=== PATIENT | male | born 1990 | race Caucasian/White ===

== ENCOUNTER 2016-05-18 11:01 | Emergency (ER) | payer MEDICAID, SELFPAY ==
[2016-05-18] MEDS ORDERED: METHOCARBAMOL 1,000 MG/10 ML VIAL (J2800) As Ordered ONE (12:17)
[2016-05-18] MEDS ORDERED: KETOROLAC 30 MG/ML VIAL (J1885) As Ordered ONE (12:17)
--- NOTE | 2016-05-18 13:05 | REP ---
CT LUMBAR SPINE WITHOUT CONTRAST: HISTORY: Back pain. There is no disc bulge or herniation at the L1-2 through L3-4 levels. The nerves exit the neural foramina without compression. A diffuse disc bulge is present at the L4-5 level. There is minimal compression of the thecal sac. The L4 nerves exit the neural foramina without compression. A diffuse disc bulge with associated osteophyte formation is present at the L5-S1 level. This abuts the thecal sac and S1 nerves. The L5 nerves exit the neural foramina without compression. The L4-5 intervertebral disc is decreased in height consistent with disc degeneration. There is no subluxation. IMPRESSION: 1. Diffuse disc bulge at the L4-5 level with minimal thecal sac compression. 2. Diffuse disc bulge with associated osteophyte formation at the L5-S1 level. This abuts the thecal sac and S1 nerves. Signed by Ganesh Hastings MD 05/18/2016 01:12 P
--- NOTE | 2016-05-18 13:17 | EDDOCDS ---
Physician Documentation [facility] Name: Hever Howard Age: 26 yrs Sex: Male : 1990 Arrival Date: 05/18/2016 Time: 11:01 Bed PD Private MD: Disposition: 05/18/16 13:11 Discharged to Home/Self Care. Impression: Low back pain. - Condition is Stable. - Discharge Instructions: Back Pain, Adult, Pjnq-sl-Ewci. - Prescriptions for Diclofenac Sodium 75 mg Oral Tablet, Delayed Release (E.C.) - take 1 tablet by ORAL route 2 times per day; 30 tablet. Robaxin- 750 750 mg Oral Tablet - take 1 tablet by ORAL route every 6 hours As needed; 40 tablet. - Medication Reconciliation, Local Pharmacy Hours form. - Follow up: Orthopaedics, [facility]; When: Call to arrange an appointment; Reason: Further diagnostic work-up, Recheck today's complaints, Continuance of care. - Problem is an acute exacerbation. - Symptoms have improved. Historical: - Allergies: Bactroban (Hives); Neosporin (xph-rvr-fsmri) (Hives); - Home Meds: 1. none - PMHx: Asthma; - PSHx: none; - Social history: Smoking status: Patient uses tobacco products, current every day smoker. Patient/guardian denies using alcohol, street drugs, No barriers to communication noted, The patient speaks fluent Swiss, Speaks appropriately for age. - Family history: Not pertinent. - : The pt / caregiver states he / she is not on anticoagulants. Home medication list is obtained from the patient. - Exposure Risk Screening:: None identified. Vital Signs: 05/18 11:06 BP 164 / 84; Pulse 88; Resp 17; Temp 96.8(T); Pulse Ox 97% on R/A; Weight 117.93 kg / lr2 259.99 lbs (R); Height 6 ft. 2 in. (187.96 cm) (R); Pain 7/10; 13:15 BP 126 / 73 RA Sitting (auto/lg); Pulse 69; Resp 16; Temp 96.9; Pulse Ox 96% on R/A; rs6 Pain 3/10; 13:16 Pain 3/10; js13 13:16 Pain 3/10; js13 11:06 Body Mass Index 33.38 (117.93 kg, 187.96 cm) lr2 MDM: 11:43 Financial registration complete. lg 11:50 [facility] Payment Agreement was scanned into [employer] and attached to record. lg 12:10 ketorolac 30 mg IM once ordered. btw 12:10 Robaxin 250 mg IM once ordered. btw 12:11 CT Spine, Lumbar W/o Contrast Ordered. EDMS Administered Medications: 12:21 Drug: ketorolac 30 mg [ketorolac 30 mg/mL (1 mL) injection solution (1 mL)] Route: IM; js13 Site: left deltoid; 13:16 Follow up: Pain 3/10 Adult; Response: Confirmed pt not driving.; Pain is decreased js13 12:21 Drug: Robaxin 250 mg [Robaxin 100 mg/mL injection solution (2.5 mL)] Route: IM; Site: js13 right deltoid; 13:16 Follow up: Pain 3/10 Adult; Response: Confirmed pt not driving.; Pain is decreased js13 Signatures: Dispatcher [employer] EDMS Christine James, Reg Reg lg Reyes Weaver PA PA btw Sullivan, Jennifer, RN RN js13 Nley Baxter RN RN ttb The chart was reviewed and I authenticate all verbal orders and agree with the evaluation and treatment provided.Attachments: 11:50 [facility] Payment Agreement lg MTDD
--- NOTE | 2016-05-18 13:17 | EDDOCDS ---
Nurse's Notes [facility] Name: Hever Howard Age: 26 yrs Sex: Male : 1990 Arrival Date: 05/18/2016 Time: 11:01 Bed PD Private MD: Diagnosis: Low back pain Presentation: 05/18 11:12 Presenting complaint: Patient states: new back pain started 3-4 days ago. No injury. ttb Lower/mid back pain. No abd pain. Denies n/d/v. Acute neurological deficits are not present. Mechanism of Injury: No Mechanism of Injury. Adult Sepsis Screening: The patient does not have new or worsening altered mentation. Patient's respiratory rate is less than 22. Systolic blood pressure is greater than 100. Patient has a qSOFA score of 0- Negative Sepsis Screen. Suicide/Homicide risk assessment- the patient denies having any suicidal and/or homicidal ideations and does not present with any other emotional, behavioral or mental health complaints. Status: Patient is not a police service technician or dependent. Transition of care: patient was not received from another setting of care. 11:12 Acuity: DARI Level 4 ttb 11:12 Method Of Arrival: Walkin/Carried/Asstd ttb Triage Assessment: 11:13 General: Appears in no apparent distress, well nourished, well groomed, Behavior is ttb appropriate for age, cooperative, pleasant. Pain: Location: mid/lower back Pain currently is 7 out of 10 on a pain scale. HIV screening NA for this visit Offered previously. Neurological: Level of Consciousness is awake, alert, Denies numbness. Cardiovascular: Chest pain is denied. Respiratory: No deficits noted. Airway is patent Denies cough, shortness of breath. Derm: Skin is normal. Musculoskeletal: Range of motion intact in all extremities. states unable to move arms behind his back d/t pain. Injury Description: No known injury. Historical: - Allergies: Bactroban (Hives); Neosporin (gcl-uuz-itrmj) (Hives); - Home Meds: 1. none - PMHx: Asthma; - PSHx: none; - Social history: Smoking status: Patient uses tobacco products, current every day smoker. Patient/guardian denies using alcohol, street drugs, No barriers to communication noted, The patient speaks fluent Austrian, Speaks appropriately for age. - Family history: Not pertinent. - : The pt / caregiver states he / she is not on anticoagulants. Home medication list is obtained from the patient. - Exposure Risk Screening:: None identified. Screenin:22 Screening information is obtained from the patient. Fall risk: No risks identified. js13 Assistance ADL's: requires no assistance with activities of daily living. Abuse/DV Screen: The patient / caregiver reports he/she is: not in a situation that causes fear, pain or injury. Nutritional screening: No deficits noted. Advance Directives: There is no active DNR order. home support is adequate. Assessment: 12:22 General: Appears uncomfortable, Behavior is appropriate for age, cooperative. Pain: js13 Location: back. Neurological: Level of Consciousness is awake, alert. Respiratory: No deficits noted. Airway is patent Respiratory effort is even, unlabored, Respiratory pattern is regular, symmetrical. Derm: Skin is pink, warm & dry. 13:12 General: Appears in no apparent distress, Behavior is appropriate for age, cooperative. js13 Pain: Location: back. Neurological: Level of Consciousness is awake, alert. Respiratory: No deficits noted. Airway is patent Respiratory effort is even, unlabored, Respiratory pattern is regular, symmetrical. Derm: Skin is pink, warm & dry. Vital Signs: 11:06 BP 164 / 84; Pulse 88; Resp 17; Temp 96.8(T); Pulse Ox 97% on R/A; Weight 117.93 kg lr2 (R); Height 6 ft. 2 in. (187.96 cm) (R); Pain 7/10; 13:15 BP 126 / 73 RA Sitting (auto/lg); Pulse 69; Resp 16; Temp 96.9; Pulse Ox 96% on R/A; rs6 Pain 3/10; 13:16 Pain 3/10; js13 13:16 Pain 3/10; js13 11:06 Body Mass Index 33.38 (117.93 kg, 187.96 cm) lr2 Vitals: 11:06 Log In Time: May 18, 2016 at 11:01. lr2 ED Course: 11:04 Patient visited by Adamaris Moreno. lr2 11:04 Patient moved to Waiting lr2 11:06 Patient moved to Pre RCE lr2 11:13 Triage Initiated ttb 11:14 Patient moved to Triage 2 ttb 11:34 Reyes Weaver PA is PHCP. btw 11:34 Cathleen Degroot MD is Attending Physician. btw 11:34 Patient visited by Reyes Weaver PA. btw 11:50 [facility] Payment Agreement was scanned into [employer]. and attached to record. lg 12:21 Patient moved to PD rs6 12:22 Patient visited by Roula Young PCA. rs6 12:22 The patient / caregiver is instructed regarding the plan of care and ED course. js13 12:22 No IV's were initiated during this patient's visit. No procedures done that require js13 assistance. 12:23 Patient visited by Debbie Sadler RN. js13 [facility] btw 13:15 Patient visited by Roula Young PCA. rs6 Administered Medications: 12:21 Drug: ketorolac 30 mg [ketorolac 30 mg/mL (1 mL) injection solution (1 mL)] Route: IM; js13 Site: left deltoid; 13:16 Follow up: Pain 3/10 Adult; Response: Confirmed pt not driving.; Pain is decreased js13 12:21 Drug: Robaxin 250 mg [Robaxin 100 mg/mL injection solution (2.5 mL)] Route: IM; Site: js13 right deltoid; 13:16 Follow up: Pain 3/10 Adult; Response: Confirmed pt not driving.; Pain is decreased js13 Order Results: There are currently no results for this order. Outcome: 13:11 Discharge ordered by Provider. btw 13:13 Discharge Assessment: Patient awake, alert and oriented x 3. No cognitive and/or js13 functional deficits noted. Patient verbalized understanding of disposition instructions. patient administered narcotics - yes. Pt provided with safe discharge. The following High Risk Discharge criteria are identified: None. Discharged to home ambulatory, with family. Condition: stable. Discharge instructions given to patient, Instructed on discharge instructions, follow up and referral plans. medication usage, Demonstrated understanding of instructions, medications, Pt was receptive of discharge instructions/ teaching. Prescriptions given X 2. CT Study completed. Property :Personal belongings accompany Pt. 13:16 Patient left the ED. js13 Signatures: Christine James, Reg Reg Reyes Dooley PA PA btw Sullivan, Jennifer,RN RN js13 Nely Baxter, RN RN ttb Hector, Roula, FLUME TENDER FLUME TENDER rs6 Adamaris Moreno2 MTDD
--- NOTE | 2016-05-20 14:17 | EDDOCDS ---
Nurse's Notes [facility] Name: Hever Howard Age: 26 yrs Sex: Male : 1990 Arrival Date: 05/18/2016 Time: 11:01 Bed PD Private MD: Diagnosis: Low back pain Presentation: 05/18 11:12 Presenting complaint: Patient states: new back pain started 3-4 days ago. No injury. ttb Lower/mid back pain. No abd pain. Denies n/d/v. Acute neurological deficits are not present. Mechanism of Injury: No Mechanism of Injury. Adult Sepsis Screening: The patient does not have new or worsening altered mentation. Patient's respiratory rate is less than 22. Systolic blood pressure is greater than 100. Patient has a qSOFA score of 0- Negative Sepsis Screen. Suicide/Homicide risk assessment- the patient denies having any suicidal and/or homicidal ideations and does not present with any other emotional, behavioral or mental health complaints. Status: Patient is not a floor worker well service or dependent. Transition of care: patient was not received from another setting of care. 11:12 Acuity: DARI Level 4 ttb 11:12 Method Of Arrival: Walkin/Carried/Asstd ttb Triage Assessment: 11:13 General: Appears in no apparent distress, well nourished, well groomed, Behavior is ttb appropriate for age, cooperative, pleasant. Pain: Location: mid/lower back Pain currently is 7 out of 10 on a pain scale. HIV screening NA for this visit Offered previously. Neurological: Level of Consciousness is awake, alert, Denies numbness. Cardiovascular: Chest pain is denied. Respiratory: No deficits noted. Airway is patent Denies cough, shortness of breath. Derm: Skin is normal. Musculoskeletal: Range of motion intact in all extremities. states unable to move arms behind his back d/t pain. Injury Description: No known injury. Historical: - Allergies: Bactroban (Hives); Neosporin (jvv-odn-aptze) (Hives); - Home Meds: 1. none - PMHx: Asthma; - PSHx: none; - Social history: Smoking status: Patient uses tobacco products, current every day smoker. Patient/guardian denies using alcohol, street drugs, No barriers to communication noted, The patient speaks fluent Greek, Speaks appropriately for age. - Family history: Not pertinent. - : The pt / caregiver states he / she is not on anticoagulants. Home medication list is obtained from the patient. - Exposure Risk Screening:: None identified. Screenin:22 Screening information is obtained from the patient. Fall risk: No risks identified. js13 Assistance ADL's: requires no assistance with activities of daily living. Abuse/DV Screen: The patient / caregiver reports he/she is: not in a situation that causes fear, pain or injury. Nutritional screening: No deficits noted. Advance Directives: There is no active DNR order. home support is adequate. Assessment: 12:22 General: Appears uncomfortable, Behavior is appropriate for age, cooperative. Pain: js13 Location: back. Neurological: Level of Consciousness is awake, alert. Respiratory: No deficits noted. Airway is patent Respiratory effort is even, unlabored, Respiratory pattern is regular, symmetrical. Derm: Skin is pink, warm & dry. 13:12 General: Appears in no apparent distress, Behavior is appropriate for age, cooperative. js13 Pain: Location: back. Neurological: Level of Consciousness is awake, alert. Respiratory: No deficits noted. Airway is patent Respiratory effort is even, unlabored, Respiratory pattern is regular, symmetrical. Derm: Skin is pink, warm & dry. Vital Signs: 11:06 BP 164 / 84; Pulse 88; Resp 17; Temp 96.8(T); Pulse Ox 97% on R/A; Weight 117.93 kg lr2 (R); Height 6 ft. 2 in. (187.96 cm) (R); Pain 7/10; 13:15 BP 126 / 73 RA Sitting (auto/lg); Pulse 69; Resp 16; Temp 96.9; Pulse Ox 96% on R/A; rs6 Pain 3/10; 13:16 Pain 3/10; js13 13:16 Pain 3/10; js13 11:06 Body Mass Index 33.38 (117.93 kg, 187.96 cm) lr2 Vitals: 11:06 Log In Time: May 18, 2016 at 11:01. lr2 ED Course: 11:04 Patient visited by Adamaris Moreno. lr2 11:04 Patient moved to Waiting lr2 11:06 Patient moved to Pre RCE lr2 11:13 Triage Initiated ttb 11:14 Patient moved to Triage 2 ttb 11:34 Reyes Weaver PA is PHCP. btw 11:34 Cathleen Degroot MD is Attending Physician. btw 11:34 Patient visited by Reyes Weaver PA. btw 11:50 [facility] Payment Agreement was scanned into [employer] and attached to record. lg 12:21 Patient moved to PD2 / rs6 12:22 Patient visited by Roula Young PCA. rs6 12:22 The patient / caregiver is instructed regarding the plan of care and ED course. js13 12:22 No IV's were initiated during this patient's visit. No procedures done that require js13 assistance. 12:23 Patient visited by Debbie Sadler RN. js13 13:[facility] btw 13:15 Patient visited by Roula Young PCA. rs6 13:22 CT Spine, Lumbar W/o Contrast Returned. EDMS 05/19 15:59 T-Sheet-- Draft Copy was scanned into [employer] and attached to record. gb Administered Medications: 05/18 12:21 Drug: ketorolac 30 mg [ketorolac 30 mg/mL (1 mL) injection solution (1 mL)] Route: IM; js13 Site: left deltoid; 13:16 Follow up: Pain 3/10 Adult; Response: Confirmed pt not driving.; Pain is decreased js13 12:21 Drug: Robaxin 250 mg [Robaxin 100 mg/mL injection solution (2.5 mL)] Route: IM; Site: js13 right deltoid; 13:16 Follow up: Pain 3/10 Adult; Response: Confirmed pt not driving.; Pain is decreased js13 Order Results: Radiology Order: CT Spine, Lumbar W/o Contrast Test: CT Spine, Lumbar W/o Contrast REASON FOR EXAMINATION: low back pain; CT LUMBAR SPINE WITHOUT CONTRAST:; ; HISTORY: Back pain.; ; There is no disc bulge or herniation at the L1-2 through L3-4 levels. The nerves; exit the neural foramina without compression.; ; A diffuse disc bulge is present at the L4-5 level. There is minimal compression; of the thecal sac. The L4 nerves exit the neural foramina without compression.; ; A diffuse disc bulge with associated osteophyte formation is present at the L5-S1; level. This abuts the thecal sac and S1 nerves. The L5 nerves exit the neural; foramina without compression.; ; The L4-5 intervertebral disc is decreased in height consistent with disc; degeneration. There is no subluxation.; ; IMPRESSION:; ; 1. Diffuse disc bulge at the L4-5 level with minimal thecal sac compression.; ; 2. Diffuse disc bulge with associated osteophyte formation at the L5-S1 level.; This abuts the thecal sac and S1 nerves.; ; ; Signed by; Ganesh Hastings MD 05/18/2016 01:12 P; Outcome: 13:11 Discharge ordered by Provider. btw 13:13 Discharge Assessment: Patient awake, alert and oriented x 3. No cognitive and/or js13 functional deficits noted. Patient verbalized understanding of disposition instructions. patient administered narcotics - yes. Pt provided with safe discharge. The following High Risk Discharge criteria are identified: None. Discharged to home ambulatory, with family. Condition: stable. Discharge instructions given to patient, Instructed on discharge instructions, follow up and referral plans. medication usage, Demonstrated understanding of instructions, medications, Pt was receptive of discharge instructions/ teaching. Prescriptions given X 2. CT Study completed. Property :Personal belongings accompany Pt. 13:16 Patient left the ED. js13 Signatures: Dispatcher [employer] EDMS Verito [place], Reg Reg gb Christine James, Reg Reg lg Reyes Weaver PA PA btw Sullivan, JenniferRN RN js13 Nely Baxter, RN RN Roula Lux, ILYA FIELD REVIEWER rs6 Adamaris Moreno2 Chart Complete MTDD
--- NOTE | 2016-05-20 14:17 | EDDOCDS ---
Physician Documentation [facility] Name: Hever Howard Age: 26 yrs Sex: Male : 1990 Arrival Date: 05/18/2016 Time: 11:01 Bed PD Private MD: Disposition: 05/18/16 13:11 Discharged to Home/Self Care. Impression: Low back pain. - Condition is Stable. - Discharge Instructions: Back Pain, Adult, [id number]-[id number]. - Prescriptions for Diclofenac Sodium 75 mg Oral Tablet, Delayed Release (E.C.) - take 1 tablet by ORAL route 2 times per day; 30 tablet. Robaxin- 750 750 mg Oral Tablet - take 1 tablet by ORAL route every 6 hours As needed; 40 tablet. - Medication Reconciliation, Local Pharmacy Hours form. - Follow up: Orthopaedics, [facility]; When: Call to arrange an appointment; Reason: Further diagnostic work-up, Recheck today's complaints, Continuance of care. - Problem is an acute exacerbation. - Symptoms have improved. Historical: - Allergies: Bactroban (Hives); Neosporin (pxj-ana-krenj) (Hives); - Home Meds: 1. none - PMHx: Asthma; - PSHx: none; - Social history: Smoking status: Patient uses tobacco products, current every day smoker. Patient/guardian denies using alcohol, street drugs, No barriers to communication noted, The patient speaks fluent Sami, Speaks appropriately for age. - Family history: Not pertinent. - : The pt / caregiver states he / she is not on anticoagulants. Home medication list is obtained from the patient. - Exposure Risk Screening:: None identified. Vital Signs: 05/18 11:06 BP 164 / 84; Pulse 88; Resp 17; Temp 96.8(T); Pulse Ox 97% on R/A; Weight 117.93 kg / lr2 259.99 lbs (R); Height 6 ft. 2 in. (187.96 cm) (R); Pain 7/10; 13:15 BP 126 / 73 RA Sitting (auto/lg); Pulse 69; Resp 16; Temp 96.9; Pulse Ox 96% on R/A; rs6 Pain 3/10; 13:16 Pain 3/10; js13 13:16 Pain 3/10; js13 11:06 Body Mass Index 33.38 (117.93 kg, 187.96 cm) lr2 MDM: 11:43 Financial registration complete. lg 11:50 [facility] Payment Agreement was scanned into [employer] and attached to record. lg 12:10 ketorolac 30 mg IM once ordered. btw 12:10 Robaxin 250 mg IM once ordered. btw 12:11 CT Spine, Lumbar W/o Contrast Ordered. EDMS 05/19 15:59 T-Sheet-- Draft Copy was scanned into [employer] and attached to record. gb Administered Medications: 05/18 12:21 Drug: ketorolac 30 mg [ketorolac 30 mg/mL (1 mL) injection solution (1 mL)] Route: IM; js13 Site: left deltoid; 13:16 Follow up: Pain 3/10 Adult; Response: Confirmed pt not driving.; Pain is decreased js13 12:21 Drug: Robaxin 250 mg [Robaxin 100 mg/mL injection solution (2.5 mL)] Route: IM; Site: js13 right deltoid; 13:16 Follow up: Pain 3/10 Adult; Response: Confirmed pt not driving.; Pain is decreased js13 Signatures: Dispatcher [employer] EDWV Verito [place], Reg Reg gb Christine James, Reg Reg lg Reyes Weaver PA PA btw Debbie Sadler,RN RN js13 Nely Baxter RN RN ttb The chart was reviewed and I authenticate all verbal orders and agree with the evaluation and treatment provided.Attachments: 11:50 [facility] Payment Agreement lg 05/19 15:59 T-Sheet-- Draft Copy gb Chart Complete MTDD
--- NOTE | 2016-05-20 14:17 | EDDOCDS ---
Physician Documentation [facility] Name: Hever Howard Age: 26 yrs Sex: Male : 1990 Arrival Date: 05/18/2016 Time: 11:01 Bed PD Private MD: Disposition: 05/18/16 13:11 Discharged to Home/Self Care. Impression: Low back pain. - Condition is Stable. - Discharge Instructions: Back Pain, Adult, [id number]-[id number]. - Prescriptions for Diclofenac Sodium 75 mg Oral Tablet, Delayed Release (E.C.) - take 1 tablet by ORAL route 2 times per day; 30 tablet. Robaxin- 750 750 mg Oral Tablet - take 1 tablet by ORAL route every 6 hours As needed; 40 tablet. - Medication Reconciliation, Local Pharmacy Hours form. - Follow up: Orthopaedics, [facility]; When: Call to arrange an appointment; Reason: Further diagnostic work-up, Recheck today's complaints, Continuance of care. - Problem is an acute exacerbation. - Symptoms have improved. Historical: - Allergies: Bactroban (Hives); Neosporin (epj-bcy-ookff) (Hives); - Home Meds: 1. none - PMHx: Asthma; - PSHx: none; - Social history: Smoking status: Patient uses tobacco products, current every day smoker. Patient/guardian denies using alcohol, street drugs, No barriers to communication noted, The patient speaks fluent Swedish, Speaks appropriately for age. - Family history: Not pertinent. - : The pt / caregiver states he / she is not on anticoagulants. Home medication list is obtained from the patient. - Exposure Risk Screening:: None identified. Vital Signs: 05/18 11:06 BP 164 / 84; Pulse 88; Resp 17; Temp 96.8(T); Pulse Ox 97% on R/A; Weight 117.93 kg / lr2 259.99 lbs (R); Height 6 ft. 2 in. (187.96 cm) (R); Pain 7/10; 13:15 BP 126 / 73 RA Sitting (auto/lg); Pulse 69; Resp 16; Temp 96.9; Pulse Ox 96% on R/A; rs6 Pain 3/10; 13:16 Pain 3/10; js13 13:16 Pain 3/10; js13 11:06 Body Mass Index 33.38 (117.93 kg, 187.96 cm) lr2 MDM: 11:43 Financial registration complete. lg 11:50 [facility] Payment Agreement was scanned into [employer] and attached to record. lg 12:10 ketorolac 30 mg IM once ordered. btw 12:10 Robaxin 250 mg IM once ordered. btw 12:11 CT Spine, Lumbar W/o Contrast Ordered. EDMS 05/19 15:59 T-Sheet-- Draft Copy was scanned into [employer] and attached to record. gb Administered Medications: 05/18 12:21 Drug: ketorolac 30 mg [ketorolac 30 mg/mL (1 mL) injection solution (1 mL)] Route: IM; js13 Site: left deltoid; 13:16 Follow up: Pain 3/10 Adult; Response: Confirmed pt not driving.; Pain is decreased js13 12:21 Drug: Robaxin 250 mg [Robaxin 100 mg/mL injection solution (2.5 mL)] Route: IM; Site: js13 right deltoid; 13:16 Follow up: Pain 3/10 Adult; Response: Confirmed pt not driving.; Pain is decreased js13 Signatures: Dispatcher [employer] EDCA Verito [place], Reg Reg gb Christine James, Reg Reg lg Reyes Weaver PA PA btw Debbie Sadler,RN RN js13 Nely Baxter RN RN ttb The chart was reviewed and I authenticate all verbal orders and agree with the evaluation and treatment provided.Attachments: 11:50 [facility] Payment Agreement lg 05/19 15:59 T-Sheet-- Draft Copy gb Chart Complete MTDD
== END 2016-05-18 13:16 | disposition home or self-care (01) ==
LOC: M ED 11:01
DX: M54.5 Low back pain (principal); J45.909 Unspecified asthma, uncomplicated; Z72.0 Tobacco use; Z88.8 Allergy status to other drugs, medicaments and biological substances
CPT/HCPCS: 72131; 96372; 99284; J1885; J2800

== ENCOUNTER → 2016-05-24 | Outpatient (REF) | payer SELFPAY | LOC: M LAB REF 17:15 | PROVIDERS: ATTEND Physician Assistant Medical | DX: R50.9 Fever, unspecified (principal) ==

== ENCOUNTER 2016-08-21 12:10 | Emergency (ER) | payer OTHER, SELFPAY ==
[~2016-08-21] VITALS: Ht 188 cm; Wt 104.3 kg
[2016-08-21 12:10] VITALS: BP 140/74
[2016-08-21] MEDS ORDERED: ERYT5OPO OS (13:08)
[2016-08-21] MEDS ORDERED: ERYTHROMYCIN OPHTH OINT OS ONE (13:15)
[2016-08-21] MEDS ORDERED: IBUPROFEN 600 MG TAB PO ONE (13:15)
== END 2016-08-21 13:30 | disposition home or self-care (01) ==
LOC: M ED 12:56
DX: H10.32 Unspecified acute conjunctivitis, left eye (principal); S05.02XA Injury of conjunctiva and corneal abrasion without foreign body, left eye, initial encounter; X58.XXXA Exposure to other specified factors, initial encounter; Y92.89 Other specified places as the place of occurrence of the external cause; Y93.89 Activity, other specified; Y99.8 Other external cause status; Z88.1 Allergy status to other antibiotic agents; F17.210 Nicotine dependence, cigarettes, uncomplicated

== ENCOUNTER 2017-11-29 09:55 | Emergency (ER) | payer MEDICAID, SELFPAY, OTHER ==
[2017-11-29] MEDS: KETOROLAC 60 MG/2 ML VIAL (J1885) IM ×2 (10:15)
== END 2017-11-29 13:07 | disposition home or self-care (01) ==
LOC: M ED 09:55
DX: M54.41 Lumbago with sciatica, right side (principal)
CPT/HCPCS: J1885

== ENCOUNTER 2020-05-05 14:20 | Emergency (ER) | payer MEDICAID, OTHER ==
[~2020-05-05] VITALS: Ht 188 cm; Wt 113.3 kg
[~2020-05-05 14:20] MED LIST: ERYT5OIN25 OS; IBUP80TA PO; ROBA500T PO
--- OUTSIDE RECORDS SUMMARY | 2020-05-05 14:28 | CCD ---
Author Author [facility] Organization [facility] Address Unknown Phone Unavailable Support Name Relationship Address Phone Maia Gillette DDS Next Of Kin [address] [place], [place] [id number] [employer] Next Of Kin [address] [place] [address] KIELSHAHEEN BARNES Next Of Kin [address] [place] [address] [place] [address] RUBYTUES Next Of Kin [address] [place] [address] UE Next Of Kin Unknown Unavailable WILLI VELARDE JR Next Of Kin [address] [place] [address] Griffin VELARDE Next Of Kin [address] [place] [address] Re-disclosure Warning The records that you are about to access may contain information from federally-assisted alcohol or drug abuse programs. If such information is present, then the following federally mandated warning applies: This information has been disclosed to you from records protected by federal confidentiality rules (42 CFR part 2). The federal rules prohibit you from making any further disclosure of this information unless further disclosure is expressly permitted by the written consent of the person to whom it pertains or as otherwise permitted by 42 CFR part 2. A general authorization for the release of medical or other information is NOT sufficient for this purpose. The Federal rules restrict any use of the information to criminally investigate or prosecute any alcohol or drug abuse patient.The records that you are about to access may contain highly sensitive health information, the redisclosure of which is protected by Article 27-F of the [facility] Public Health law. If you continue you may have access to information: Regarding HIV / AIDS; Provided by facilities licensed or operated by the [facility] Office of Mental Health; or Provided by the [facility] Office for People With Developmental Disabilities. If such information is present, then the following [facility] mandated warning applies: This information has been disclosed to you from confidential records which are protected by state law. State law prohibits you from making any further disclosure of this information without the specific written consent of the person to whom it pertains, or as otherwise permitted by law. Any unauthorized further disclosure in violation of state law may result in a fine or detention sentence or both. A general authorization for the release of medical or other information is NOT sufficient authorization for further disc losure. Family History Family Member Name Family Member Gender Family Member Status Date o f Status Description Data Source(s) Unknown Unknown Problem [facility] ([facility]) Insurance Providers Payer name Policy type / Coverage type Policy ID Covered republican ID Covered republican's relationship to [place] Policy [place] Plan Information EMEDNY [id number] SP [id number] MEDICAID M [id number] O [id number] [facility] Community Plan P [id number] S [id number] Medicaid S [id number] S [id number] [facility] Health Maintenance Organization (HMO) [id number] Self [id number] [facility] P [id number] S [id number] MEDICAID [id number] SP [id number] Medicaid Dental P [id number] S [id number] SELF PAY ONLY [id number] SP [id number] [facility] PLAN [facility] SP [phone] [facility] [id number] SP [id number] O UNAVAILABLE UNAVAILA BLE [facility] [id number] SP [id number] SELF PAY ONLY [id number] SP [id number] MEDICAID [id number] SP [id number] D Managed Care [facility] P [id number] S [id number] SELF PAY ONLY UNAVAILABLE UNAV AILABLE SELF PAY UNAVAILABLE UNAVAILA BLE Managed Care - [facility] P [id number] S [id number] Medicaid S [id number] S [id number] [facility] P [id number] S [id number] Self Pay P [id number] S [id number] Self Pay P UNAVAILABLE S UNAVAILA BLE
--- OUTSIDE RECORDS SUMMARY | 2020-05-05 14:58 | CCD ---
Author Author [facility] Organization [facility] Address Unknown Phone Unavailable Support Name Relationship Address Phone Maia Gillette DDS Next Of Kin [address] [place], [place] [id number] [employer] Next Of Kin [address] [place] [address] KIELSHAHEEN BARNES Next Of Kin [address] [place] [address] [place] [address] RUBYTUES Next Of Kin [address] [place] [address] UE Next Of Kin Unknown Unavailable WILLI VELARDE JR Next Of Kin [address] [place] [address] Griffin VELARDE Next Of Kin [address] [place] [address] Re-disclosure Warning The records that you are [...] is protected by Article 27-F of the [facility] Public Health law. If you continue you may have access to information: Regarding HIV / AIDS; Provided by facilities licensed or operated by the [facility] Office of Mental Health; or Provided by the [facility] Office for People With Developmental Disabilities. If such information is present, then the following [facility] mandated warning applies: This information has been [...] law may result in a fine or long-term sentence or both. A general authorization for the release of medical or other information is NOT sufficient authorization for further disc losure. Family History Family Member Name Family Member Gender Family Member Status Date o f Status Description Data Source(s) Unknown Unknown Problem [facility] ([facility]) Insurance Providers Payer name Policy type / Coverage type Policy ID Covered libertarian ID Covered libertarian's relationship to [place] Policy [place] Plan Information [facility] [id number] SP [id number] EMEDNY [id number] SP [id number] MEDICAID M [id number] O [id number] Managed [facility] Community Plan P [id number] S [id number] Medicaid S [id number] S [id number] [facility] Health Maintenance Organization (HMO) [id number] Self [id number] Managed Care - Community [facility] P [id number] S [id number] MEDICAID [id number] SP [id number] Medicaid Dental P [id number] S [id number] SELF PAY ONLY [id number] SP [id number] [facility] [phone] SP [id number] [facility] [id number] SP [id number] O UNAVAILABLE UNAVAILA BLE [facility] [id number] SP [id number] SELF PAY ONLY [id number] SP [id number] MEDICAID [id number] SP [id number] D Managed Care [facility] P [id number] S [id number] SELF PAY ONLY UNAVAILABLE UNAV AILABLE SELF PAY UNAVAILABLE UNAVAILA BLE Managed Care - Community Plan [facility] P [id number] S [id number] Medicaid S [id number] S [id number] [facility] - Community [facility] P [id number] S [id number] Self Pay P [id number] S [id number] Self Pay P UNAVAILABLE S UNAVAILA BLE
[2020-05-05] MEDS ORDERED: KETOROLAC 60MG 2ML VIAL IM ONE (16:00)
[2020-05-05] MEDS ORDERED: CYCLOBENZAPRINE 5MG TABLET PO ONE (16:00)
[2020-05-05] MEDS ORDERED: KETOROLAC TROMETHAMINE 10 MG TAB PO ONE (16:00)
[2020-05-05 16:17] LABS: BASO # 0.1 10^3/uL (0.0-0.2); BASO % 0.6 % (0.0-1.0); EOS # 0.1 10^3/uL (0.0-0.5); EOS % 0.8 % (0.0-3.0); HEMATOCRIT 47.5 % (42.0-52.0); HEMOGLOBIN 16.1 g/dl (13.5-17.5); LYMPH # 2.6 10^3/uL (1.5-5.0); LYMPH % 23.6 % (24.0-44.0); MEAN CORPUSCULAR HEMOGLOBIN 30.6 pg (27.0-33.0); MEAN CORPUSCULAR HGB CONC 33.9 g/dl (32.0-36.5); MEAN CORPUSCULAR VOLUME 90.1 fl (80.0-96.0); MONO # 0.8 10^3/uL (0.0-0.8); MONO % 7.6 % (0.0-5.0); NEUTROPHILS # 7.3 10^3/uL (1.5-8.5); PLATELET COUNT, AUTOMATED 226 10^3/uL (150-450); RED BLOOD COUNT 5.27 10^6/uL (4.30-6.10); WHITE BLOOD COUNT 10.9 10^3/uL (4.0-10.0)
--- NOTE | 2020-05-05 17:06 | REPVR ---
PROCEDURE INFORMATION: Exam: MR Lumbar Spine Without Contrast. Exam date and time: 05/05/2020 4:37 PM Age: 29 years old Clinical indication: Low back pain; Additional info: Cuada equina/ back pain with groin parthesia TECHNIQUE: Imaging protocol: Multiplanar magnetic resonance images of the lumbar spine without intravenous contrast. COMPARISON: CT Spine, lumbar w/o contrast 05/18/2016 12:14 PM FINDINGS: Vertebrae: There is no fracture. Lumbar vertebra maintain their height and alignment. Stir images demonstrate no evidence of bone marrow edema or marrow infiltrating lesion. Spinal cord: The lower thoracic spinal cord, conus and cauda equina are normal. No compression. L1-L2: No significant disc disease. No significant spinal canal stenosis. No neural foraminal stenosis. L2-L3: No significant disc disease. No significant spinal canal stenosis. No neural foraminal stenosis. L3-L4: No significant disc disease. No significant spinal canal stenosis. No neural foraminal stenosis. L4-L5: No significant disc bulge. Facet hypertrophy. No central or foraminal stenosis L5-S1: Disc dehydration. There is a central to right paracentral disc protrusion. Maximal anterior to posterior dimension is 7 mm. This slightly indents the thecal sac. This effaces the fat ventral to the descending S1 nerve roots within the lateral recesses. S1 nerve root impingement is greater on the right peer Soft tissues: No paraspinous or intraspinal mass, hemorrhage or fluid collection. IMPRESSION: L5-S1 central to right paracentral disc protrusion impinging the S1 nerve roots in the lateral recesses, greater on the right. Electronically signed by: Levi Islas On 05/05/2020 17:05:49 PM
[2020-05-05 17:17] LABS: APPEARANCE, URINE CLEAR (CLEAR); BACTERIA, URINE AUTO NEGATIVE (NEGATIVE); BILIRUBIN, URINE AUTO NEGATIVE (NEGATIVE); BLOOD, URINE BLOOD NEGATIVE (NEGATIVE); COLOR, URINE YELLOW (YELLOW); GLUCOSE, URINE (UA) AUTO NEGATIVE (NEGATIVE); KETONE, URINE AUTO NEGATIVE (NEGATIVE); LEUKOCYTE ESTERASE, URINE AUTO NEGATIVE (NEGATIVE); NITRITE, URINE AUTO NEGATIVE (NEGATIVE); PROTEIN, URINE AUTO NEGATIVE (NEGATIVE); RBC, URINE AUTO 0 /HPF (0-3); SPECIFIC GRAVITY URINE AUTO 1.012 (1.002-1.035); SQUAMOUS EPITHELIAL CELL UR AU 0 /HPF (0-6); UROBILINOGEN, URINE AUTO 0.2 mg/dL (0.0-2.0); WBC, URINE AUTO 0 /HPF (0-3)
[2020-05-05] MEDS ORDERED: KETO10TAB PO (17:29)
[2020-05-05] MEDS ORDERED: CYCL5TAB PO (17:30)
[2020-05-05 17:49] VITALS: BP 128/58
== END 2020-05-05 17:50 | disposition home or self-care (01) ==
LOC: M ED 14:20
DX: M54.16 Radiculopathy, lumbar region (principal); Z87.11 Personal history of peptic ulcer disease; Z87.09 Personal history of other diseases of the respiratory system; F17.200 Nicotine dependence, unspecified, uncomplicated; Z88.1 Allergy status to other antibiotic agents; Z88.8 Allergy status to other drugs, medicaments and biological substances
CPT/HCPCS: 72148; 80047; 81001; 85025; 96372; 99283; J1885

== ENCOUNTER 2021-08-14 09:05 | Emergency (ER) | payer MEDICAID, OTHER ==
[~2021-08-14] VITALS: Ht 188 cm; Wt 109.1 kg
[~2021-08-14 09:05] MED LIST changes: +CYCL5TAB PO; +KETO10TAB PO
[2021-08-14] MEDS ORDERED: ACET-683 PO (09:38)
[2021-08-14] MEDS ORDERED: LIDOCAINE 5% (LIDODERM) PATCH TD ONE (11:45)
[2021-08-14] MEDS ORDERED: KETOROLAC 60MG 2ML VIAL IM ONE (11:45)
[2021-08-14] MEDS ORDERED: methocarbamoL 750 MG TAB PO ONE (11:45)
[2021-08-14] MEDS ORDERED: KETO10TAB PO (13:10)
[2021-08-14] MEDS ORDERED: METH-1165 PO (13:10)
[2021-08-14] MEDS ORDERED: LIDO5DIS41 TD (13:10)
[2021-08-14 13:51] VITALS: BP 142/67
[2021-08-14] MEDS ORDERED: **NOTE PATIENT COMMENT** MISC XX SCH (21:00)
== END 2021-08-14 13:52 | disposition home or self-care (01) ==
LOC: M ED 09:05
DX: S39.012A Strain of muscle, fascia and tendon of lower back, initial encounter (principal); X50.9XXA Other and unspecified overexertion or strenuous movements or postures, initial encounter; F17.200 Nicotine dependence, unspecified, uncomplicated; F12.10 Cannabis abuse, uncomplicated; Z88.1 Allergy status to other antibiotic agents; Z88.8 Allergy status to other drugs, medicaments and biological substances; Y92.9 Unspecified place or not applicable; Y93.9 Activity, unspecified; Y99.9 Unspecified external cause status
CPT/HCPCS: 72110; 96372; 99283; J1885

== ENCOUNTER 2021-09-19 12:48 | Emergency (ER) | payer OTHER ==
[~2021-09-19] VITALS: Ht 188 cm; Wt 109.8 kg
[~2021-09-19 12:48] MED LIST changes: +ACET-683 PO; +LIDO5DIS41 TD; +METH-1165 PO
[2021-09-19] MEDS ORDERED: diazePAM 10 MG TAB PO ONE (14:50)
[2021-09-19] MEDS ORDERED: LIDOCAINE 5% (LIDODERM) PATCH TD ONE (14:50)
[2021-09-19 16:03] LABS: APPEARANCE, URINE HAZY (CLEAR); BACTERIA, URINE AUTO NEGATIVE (NEGATIVE); BILIRUBIN, URINE AUTO 2+ (NEGATIVE); BLOOD, URINE BLOOD NEGATIVE (NEGATIVE); COLOR, URINE YELLOW (YELLOW); GLUCOSE, URINE (UA) AUTO NEGATIVE (NEGATIVE); KETONE, URINE AUTO TRACE mg/dL (NEGATIVE); LEUKOCYTE ESTERASE, URINE AUTO NEGATIVE (NEGATIVE); MUCUS, URINE SMALL (NEGATIVE); NITRITE, URINE AUTO NEGATIVE (NEGATIVE); PROTEIN, URINE AUTO NEGATIVE (NEGATIVE); RBC, URINE AUTO 0 /HPF (0-3); SPECIFIC GRAVITY URINE AUTO 1.024 (1.002-1.035); SQUAMOUS EPITHELIAL CELL UR AU 0 /HPF (0-6); WBC, URINE AUTO 1 /HPF (0-3)
[2021-09-19] MEDS ORDERED: IBUP80TA PO (17:22)
[2021-09-19] MEDS ORDERED: METH-1164 PO (17:22)
[2021-09-19] MEDS ORDERED: LIDO5DIS41 TD (17:22)
[2021-09-19 17:33] VITALS: BP 136/85
[2021-09-19] MEDS ORDERED: **NOTE PATIENT COMMENT** MISC XX SCH (21:00)
== END 2021-09-19 17:36 | disposition home or self-care (01) ==
LOC: M ED 12:48
DX: M51.36 Other intervertebral disc degeneration, lumbar region (principal); M47.817 Spondylosis without myelopathy or radiculopathy, lumbosacral region; M48.07 Spinal stenosis, lumbosacral region; S39.92XA Unspecified injury of lower back, initial encounter; X50.0XXA Overexertion from strenuous movement or load, initial encounter; Y99.0 Civilian activity done for income or pay; Z79.899 Other long term (current) drug therapy; J45.909 Unspecified asthma, uncomplicated; K27.9 Peptic ulcer, site unspecified, unspecified as acute or chronic, without hemorrhage or perforation; F17.200 Nicotine dependence, unspecified, uncomplicated

== ENCOUNTER 2022-09-25 14:12 | Emergency (ER) | payer OTHER ==
[~2022-09-25] VITALS: Ht 188 cm; Wt 105.9 kg
[~2022-09-25 14:12] MED LIST changes: +METH-1164 PO
[2022-09-25] MEDS ORDERED: IBUPROFEN 800 MG TAB PO ONE (17:50)
[2022-09-25] MEDS ORDERED: methocarbamoL 750 MG TAB PO ONE (17:50)
[2022-09-25] MEDS ORDERED: OMEPRAZOLE 20MG CAP PO ONE (17:50)
[2022-09-25] MEDS ORDERED: METH-1165 PO (17:51)
[2022-09-25] MEDS ORDERED: IBUP80TA PO (17:51)
[2022-09-25] MEDS ORDERED: OMEP-173 PO (17:51)
[2022-09-25 18:05] VITALS: BP 127/77; TEMP 96.5; O2SAT 96
== END 2022-09-25 18:21 | disposition home or self-care (01) ==
LOC: M ED 14:12
DX: M54.17 Radiculopathy, lumbosacral region (principal); K27.9 Peptic ulcer, site unspecified, unspecified as acute or chronic, without hemorrhage or perforation; J45.909 Unspecified asthma, uncomplicated; Z88.1 Allergy status to other antibiotic agents; Z88.8 Allergy status to other drugs, medicaments and biological substances